=== PATIENT | female | born 1995 | race Two or more races ===

== ENCOUNTER 2024-11-02 16:33 | Outpatient (REF) | payer MEDICAID, SELFPAY ==
--- OUTSIDE RECORDS SUMMARY | 2024-11-02 17:12 | XMS_ITS | Encounter Summary ---
Author Organization [employer] Address [address] [facility] 7t [place] [address] Care Team Providers Care Photographic Intelligence Officer Name Role Phone Unavailable Primary Care Provider Unavailabl e Reason for Visit * Reason Onset Date Comments Appointment 11/02/2024 Patient needs to be put on the new patient list Encounter Details Date Type Department Care Team (Late st Contact Info) Description 11/02/2024 Telephone [facility] [address] [place] [address] [phone] Madelin Norwood MD [address], [place] [phone] Appointment (Patient needs to be put on the new patient list) Social History Tobacco Use Types Packs/Day Years Used Date Smoking Tobacco: Never Assessed Comments Unknown Sex and Gender Information Value Date Recorded Sex Assigned at Female 11/02/2024 3:42 PM EDT Legal Sex Female 3:40 PM EDT Gender Identity Female 11/02/2024 3:42 PM EDT Sexual Orientation Straight 11/02/2024 3: 47 PM EDT documented as of this encounter Miscellaneous Notes * Telephone Encounter - Stevie Reyes MA - 11/02/2024 4:29 PM EDT Patient needs to be put on the new patient list documented in this encounter Plan of Treatment Not on file documented as of this encounter Visit Diagnoses Not on filedocumented in this encounter
--- OUTSIDE RECORDS SUMMARY | 2024-11-02 17:12 | XMS_ITS | Encounter Summary ---
Author Organization [employer] Address [address] [facility] 7t [place] [address] Care Team Providers Care Newspaper Writer Name Role Phone Unavailable Primary Care Provider Unavailabl e Reason for Visit * Reason Comments swallon feet and leg Encounter Details Date Type Department Care Team (Late st Contact Info) Description 11/02/2024 4:00 PM EDT Office Visit [facility] [address] [place] [address] Bilateral edema of lower extremity (Primary Dx); Weight gain Social History Tobacco Use Types Packs/Day Years Used Date Smoking Tobacco: Never Assessed Comments Unknown Sex and Gender Information Value Date Recorded Sex Assigned at Female 11/02/2024 3:42 PM EDT Legal Sex Female 3:40 PM EDT Gender Identity Female 11/02/2024 3:42 PM EDT Sexual Orientation Straight 11/02/2024 3: 47 PM EDT documented as of this encounter Last Filed Vital Signs Vital Sign Reading Time Taken Comments Blood Pressure 131/84 11/02/2024 4:10 PM EDT Pulse 94 11/02/2024 4:10 PM EDT Temperature 37.2 ??C (98.9 ??F) 11/02/2024 4:10 PM ED T Respiratory Rate 20 11/02/2024 4:10 PM EDT Oxygen Saturation 97% 11/02/2024 4:10 PM EDT Inhaled Oxygen Concentration - - Weight 86.2 kg (190 lb) 11/02/2024 4:10 PM EDT Height - - Body Mass Index - - documented in this encounter Miscellaneous Notes * Assessment & Plan Note - Linda Iverson - 11/02/2024 4:29 PM EDTAssociated Problem(s): Weight gain Unknown etiology. -ordered labs 4/3/25 * Assessment & Plan Note - Linda Iverson - 11/02/2024 4:28 PM EDTAssociated Problem(s): Bilateral edema of lower extremity Bilateral lower extremity edema, not currently present. Exam benign. -Stemmers sign negative (able to pinch skin on the dorsum of foot) -No evidence of heart failure or untreated YAJAIRA, JVP flat, lungs clear -No evidence of cellulitis or ruptured popliteal cyst -Management includes compression, elevation, and avoidance of exacerbating medications. -Compression stockings documented in this encounter Plan of Treatment Scheduled Orders Name Type Priority Associated Diagnoses Orde r Schedule CBC auto differential Lab Routine Bilateral edema of lower extremity Weight gain Expected: 11/02/2024 (Approximate), Expires: 11/02/2025 Sed Rate by Modified Westergren Lab Routine Bilateral edema of lower extremity Weight gain Expected: 11/02/2024, Expires: 11/02/2025 TSH W/Reflex to FT4 Lab Routine Bilateral edema of lower extremity Weight gain Expected: 11/02/2024 (Approximate), Expires: 11/02/2025 Basic Metabolic Panel Lab Routine Bilateral edema of lower extremity Weight gain Expected: 11/02/2024 (Approximate), Expires: 11/02/2025 documented as of this encounter Visit Diagnoses Diagnosis Bilateral edema of lower extremity- Primary Weight gain Other symptoms concerning nutrition, metabolism, and development documented in this encounter
--- OUTSIDE RECORDS SUMMARY | 2024-11-02 17:12 | XMS_ITS | Clinical Summary ---
Author Organization [employer] Address [address] [facility] 7t [place] [address] Care Team Providers Care University Manager Name Role Phone Unavailable Primary Care Provider Unavailabl e Active Problems Problem Noted Date Diagnosed Date Bilateral edema of lower extremity 11/02/2024 Assessment & Plan (11/02/2024 4:40 PM EDT): Bilateral lower extremity edema, not currently present. Exam benign. -Stemmers sign negative (able to pinch skin on the dorsum of foot) -No evidence of heart failure or untreated YAJAIRA, JVP flat, lungs clear -No evidence of cellulitis or ruptured popliteal cyst -Management includes compression, elevation, and avoidance of exacerbating medications. -Compression stockings Weight gain 11/02/2024 Assessment & Plan (11/02/2024 4:41 PM EDT): Unknown etiology. -ordered labs 11/02/24 Encounters Date Type Department Care Team Description 11/02/2024 4:00 PM EDT Office Visit [facility] [address] [place] [phone] Bilateral edema of lower extremity (Primary Dx); Weight gain 11/02/2024 Telephone [facility] [address] [place] [address] Madelin Norwood MD Appointment (Patient needs to be put on the new patient list) 11/02/2024 Travel from Last 3 Months Social History Tobacco Use Types Packs/Day Years Used Date Smoking Tobacco: Never Assessed Comments Unknown Sex and Gender Information Value Date Recorded Sex Assigned at Female 11/02/2024 3:42 PM EDT Legal Sex Female 3:40 PM EDT Gender Identity Female 11/02/2024 3:42 PM EDT Sexual Orientation Straight 11/02/2024 3: 47 PM EDT Last Filed Vital Signs Vital Sign Reading [...] - - Body Mass Index - - Plan of Treatment Health Maintenance Due Date Last Done Comments Depression Screening 1993 HIV Screening 1993 SDOH Screening 1993 Alcohol/Substance Use Screening 2005 Tobacco Screening 2005 Family Planning (PISQ) 2008 Hepatitis C Screening 2011 DTaP/Tdap/Td Vaccines (1 - Tdap) 2012 Hepatitis B Vaccines (1 of 3 - 19+ 3-dose series) 2012 Pap Smear 2014 Cervical Cancer Screening 2023 HPV/Cotest 2023 COVID-19 Vaccine (1 - 2023-2 5 season) 2024 Influenza Vaccine (#1) 2024 Zoster Vaccines (1 of 2) 2043 RSV Patients and Pa tients Aged 60 years or older (1 - 1-dose 75+ series) 2068 HIB Vaccines Aged Out No longer eligi ble based on patient's age to complete this topic HPV Vaccines Aged Out No longer eligi ble based on patient's age to complete this topic Hepatitis A Vaccines Aged Out No long er eligible based on patient's age to complete this topic IPV Vaccines Aged Out No longer eligi ble based on patient's age to complete this topic Meningococcal Vaccine Aged Out No rodríguez moreno eligible based on patient's age to complete this topic Pneumococcal Vaccine: Pediat rics (0 to 5 Years) and At-Risk Patients (6 to 49) Years) Aged Out No longer eligible b ased on patient's age to complete this topic RSV under 20 months Aged Out No longe r eligible based on patient's age to complete this topic Rotavirus Vaccines Aged Out No longer eligible based on patient's age to complete this topic [place] [address] [address] [place] [address] LIMITED HSN FULL
--- OUTSIDE RECORDS SUMMARY | 2024-11-02 17:12 | XMS_ITS | Clinical Summary ---
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 cxr negative Gestational diabetes 2019 DX:Gestatio nal diabetes Headache, migraine DX:Headache, migraine Family History Medical History Relation Name Comments Breast cancer Neg Hx Ovarian cancer Neg Hx Uterine cancer Neg Hx Relation Name Status Comments Father Alive Mother Alive Sister 1 Alive Sister 2 Alive Social History Tobacco Use Types Packs/Day Years Used Date Smoking Tobacco: Never Smokeless Tobacco: Never Alcohol Use Standard Drinks/Week Comments No 0 (1 standard drink = 0.6 oz pur e alcohol) Comments Unknown Sex and Gender Information Value Date Recorded Sex Assigned at Not on file Legal Sex Female 3:28 AM EST Gender Identity Not on file Sexual Orientation Not on file Obstetrics History Last Filed Vital Signs Vital Sign Reading Time Taken Comments Blood Pressure 122/82 11/24/2022 9:04 AM EDT Pulse 105 11/24/2022 9:04 AM EDT Temperature - - Respiratory Rate - - Oxygen Saturation - - Inhaled Oxygen Concentration - - Weight 80.6 kg (177 lb 9.6 oz) 11/24/2022 9:04 A M EDT Height 160 cm (5' 3 ) 11/24/2022 9:04 AM EDT Body Mass Index 31.46 11/24/2022 9:04 AM EDT Plan of Treatment Health Maintenance Due Date Last Done Comments DTaP,Tdap,and Td Vaccines (1 - Tdap) 2012 Hepatitis B Vaccines (1 of 3 - 19+ 3-dose series) 2012 Depression Screening 07/05/2022 HIV Screening 07/05/2022 Hepatitis C Screening 07/05/2022 Social Influencers of Health Screening 07/05/2022 Cervical Cancer Screening: P ap Smear 02/21/2023 02/22/2020, 01/05/2020 COVID-19 Vaccine (2023-2 5 season) 2024 Influenza Vaccine (Season Ended) 2025 HIB Vaccines Aged Out No longer eligi [...] on patient's age to complete this topic MMR Vaccines Aged Out No longer eligi ble based on patient's age to complete this topic Meningococcal ACWY Vaccine Aged Out N o longer eligible based on patient's age to complete this topic Meningococcal B Vacine Aged Out No lo nger eligible based on patient's age to complete this topic Pneumococcal Vaccine: Pediatrics (0 to 5 Years) and At-Risk Patients (6 to 64 Years) Aged Out No longer eligible b ased on patient's age to complete this topic RSV Immunization Patients Under 20 months Aged Out No longer eligible b ased on patient's age to complete this topic Varicella Vaccines Aged Out No longer eligible based on patient's age to complete this topic Procedures Procedure Name Priority Date/Time Associated Diagnosis Comments PAP SMEAR Routine 02/22/2020 from Last 3 Months or Most Recently Relevant to Health Maintenance Results * Pap smear (02/22/2020) 02/22/2020 Narrative HISTORICAL TESTING LAB RESULTING AGENCY - 02/26/2020 11:25 AM EDT [id number] THINPREP PAP, IMAGED: NEGATIVE FOR SQUAMOUS INTRAEPITHELIAL LESION AND MALIGNANCY . CLUE CELLS ARE PRESENT. SULMA CHIN(ASCP) (CASE ELECTRONICALLY SIGNED 02 26 2020) ADEQUACY: SATISFACTORY ENDOCERVICAL/TRANSFORMATION ZONE COMPONENT PRESENT. SOURCE: THINPREP PAP HPV IF ASCUS, CERVICAL, IMAGED CLINICAL INFORMATION: HPV IF DIAGNOSIS OF ASCUS. HORMONES, PAP HX NEG, NO LMP RECORDED, IRREGULAR MENSES [Z12.4] us Siri Rahman MD LAB CYTOLOGY ORDERABLES Fin al Result HISTORICAL TESTING LAB RESULTING AGENCY from Last 3 Months or Most Recently Relevant to Health Maintenance Care Teams Apparel Patternmaker Relationship Specialty Start Date End Date Shiela Burns MD [address] [place] [address] PCP - General Internal Medicine 01/05/20
--- OUTSIDE RECORDS SUMMARY | 2024-11-02 17:12 | XMS_ITS | Encounter Summary ---
Author Organization [employer] Address [address] [facility] 7t [place] [address] Care Team Providers Care Brine Tank Separator Operator Name Role Phone Unavailable Primary Care Provider Unavailabl e Encounter Details Date Type Department Care Team (Latest Contact Info) Description 11/02/2024 Travel Social History Tobacco Use Types Packs/Day Years Used Date Smoking Tobacco: Never Assessed Comments Unknown Sex and Gender Information Value Date Recorded Sex Assigned at Female 11/02/2024 3:42 PM EDT Legal Sex Female 3:40 PM EDT Gender Identity Female 11/02/2024 3:42 PM EDT Sexual Orientation Straight 11/02/2024 3: 47 PM EDT documented as of this encounter Plan of Treatment Not on file documented as of this encounter Visit Diagnoses Not on filedocumented in this encounter
[2024-11-02 17:46] LABS: MANUAL DIFF FLAG NO
[2024-11-02 18:07] LABS: Anion Gap 12 (12-20); Blood Urea Nitrogen 10 mg/dL (9-16); Calcium 9.9 mg/dL (8.4-10.2); Carbon Dioxide 27 mmol/L (22-29); Chloride 105 mmol/L (96-108); Estimated Glomerular Filt Rate > 60; Glucose Random 96 mg/dL (60-115); Potassium 4.4 mmol/L (3.3-5.1); Sodium 140 mmol/L (135-145)
[2024-11-02 18:18] LABS: Basophils Percent Auto 0.5 % (0-2); Eosinophils Absolute Auto 0.2 X10*3/uL (0.0-0.4); Eosinophils Percent Auto 1.8 % (0-4); Hematocrit 44.7 % (37.0-47.0); Hemoglobin 14.9 g/dl (12.0-16.0); Imm Gran Abs Auto 0.05 X10*3/uL (0.00-0.03); Imm Gran Pct Auto 0.6 % (0.0-0.4); Lymphocytes Absolute Auto 2.9 X10*3/uL (1.2-4.9); Lymphocytes Percent Auto 32.5 % (20-40); Mean Corpuscular HGB Conc 33.3 g/dl (31.0-35.0); Mean Corpuscular Hemoglobin 30.2 pg (27.0-33.0); Mean Corpuscular Volume 90.7 fL (80.0-98.0); Mean Platelet Volume 10.1 fL (9.4-12.3); Monocytes Absolute Auto 0.5 X10*3/uL (0.1-1.2); Neutrophils Absolute Auto 5.2 x10*3/uL (2.0-8.3); Neutrophils Percent Auto 58.6 % (45-73); Platelet Count 277 X10*3/uL (160-400); Red Blood Count 4.93 X10*6/uL (4.20-5.50); Red Cell Distribution Width 12.6 % (11.0-16.0); White Blood Count 8.8 X10*3/uL (4.8-10.8)
[2024-11-02 18:37] LABS: TSH reflex Free T4 1.79 uIU/mL (0.32-4.0)
[2024-11-02 20:18] LABS: Erythrocyte Sedimentation Rate 9 MM/HR (0-20)
== END 2024-11-02 16:34 | disposition home or self-care (01) ==
LOC: HO.HHCL 16:33
PROVIDERS: Visit Provider Family Medicine
DX: R60.0 Localized edema (principal); R63.5 Abnormal weight gain
CPT/HCPCS: 36415; 80048; 84443; 85025; 85652

== ENCOUNTER 2025-03-20 16:55 | Outpatient (REF) | payer MEDICAID, SELFPAY ==
--- OUTSIDE RECORDS SUMMARY | 2025-03-20 17:53 | XMS_ITS | Clinical Summary ---
Author Organization [employer] Address [address] [facility] 7t [place] [address] Care Team Providers Care Viscose Cellar Charge Hand Name Role Phone Heather Dinero MD Primary Care Pro vider Allergies No known active allergies Medications No known medications Active Problems Problem Noted Date Diagnosed Date Migraine 02/28/2025 Health care maintenance 02/28/2025 Obesity (BMI 30-39.9) 02/28/2025 Anxiety with depression 02/28/2025 Resolved Problems Problem Noted Date Diagnosed Date Resolved Date Bilateral edema of lower extremity 11/02/2024 02/28/2025 Assessment & Plan (11/02/2024 4:40 PM EDT): Bilateral lower extremity edema, not currently present. Exam benign. -Stemmers sign negative (able to pinch skin on the dorsum of foot) -No evidence of heart failure or untreated YAJAIRA, JVP flat, lungs clear -No evidence of cellulitis or ruptured popliteal cyst -Management includes compression, elevation, and avoidance of exacerbating medications. -Compression stockings Encounters Date Type Department Care Team Description 03/20/2025 9:30 AM EDT Procedure Visit [facility] [address] [place] [phone] Margarette Dunn CNM Cervical cancer screening (Primary Dx) 03/20/2025 Travel 03/19/[address] [address] Heather Dinero MD Chart Prep 02/28/2025 9:15 AM EDT Office Visit [address] [address] Heather Dinero MD Migraine without status migrainosus, not intractable, unspecified migraine type (Primary Dx); Health care maintenance; Obesity (BMI 30-39.9); Dietary counseling; Exercise counseling; Anxiety with depression 02/28/2025 Telephone [facility] [address] [place] [phone] Heather Dinero MD Appointment 02/28/2025 Travel 02/27/2025 Telephone [facility] [address] [place] [address] Heather Dinero MD CHART PREP 02/21/2025 Patient Outreach [facility] [address] [place] [address] Heather Dinero MD Pre-visit Planning (SDOH Screening negative and Tobacco screening negative) from Last 3 Months Family History Medical History Relation Name Comments HTN Maternal Grandfather Hyperthyroidism Mother's Sister Breast cancer Neg Hx Colon cancer Neg Hx Ovarian cancer Neg Hx Relation Name Status Comments Maternal Grandfather Mother's Sister Social History Tobacco Use Types Packs/Day Years Used Date Smoking Tobacco: Never Passive Smoke Exposure: Never Smokeless Tobacco: Never Tobacco Cessation:Counseling Given: Not Answered Alcohol Use Standard Drinks/Week Comments Yes 0 (1 standard drink = 0.6 oz pur e alcohol) social Depression Answer Date Recorded Patient Health Questionnaire-9 Score 4 02/28/2025 Patient Health Questionnaire-9 Score 4 02/28/2025 Last PHQ-9: Questionnaire Data Not on file 0 02/28/2025 Housing Stability Answer Date Recorded What is your housing situation today? I have crissy cavazos 02/21/[address] you li ve. Do you have problems with any of the following? None of the above 02/21/2025 Food Insecurity Answer Date Recorded Within the past 12 months, y ou worried that your food would run out before you got money to buy more: Never True 02/21/2025 Within the past 12 months,th e food you bought just didn't last and you didn't have enough money to get more: Never True Transportation Answer Date Recorded In the past 12 months, has l ack of transportation kept you from medical appts, meetings, work or from getting things needed for daily living? No 02/21/2025 Utilities Answer Date Recorded In the past 12 months, has t he electric, gas, oil or water company threatened to shut off services in your home? No 02/21/2025 Depression Answer Date Recorded Patient Health Questionnaire-2 Score 2 02/28/2025 Internet Access Answer Date Recorded Internet Access Q1 Yes 02/21/2025 Internet Access Q2 Not on file 02/21/2025 Comments Unknown Intention Date Recorded No desire to become (finding) 0 03/20/2025 Sex and Gender Information Value Date Recorded Sex Assigned at Female 11/02/2024 3:42 PM EDT Legal Sex Female 3:40 PM EDT Gender Identity Female 11/02/2024 3:42 PM EDT Sexual Orientation Straight 11/02/2024 3: 47 PM EDT Last Filed Vital Signs Vital Sign Reading Time Taken Comments Blood Pressure 90/70 03/20/2025 9:21 AM EDT Pulse 77 03/20/2025 9:21 AM EDT Temperature 36.6 C (97.9 F) 03/20/2025 9:21 AM EDT Respiratory Rate 14 03/20/2025 9:21 AM EDT Oxygen Saturation 98% 03/20/2025 9:21 AM EDT Inhaled Oxygen Concentration - - Weight 85.7 kg (189 lb) 03/20/2025 9:21 AM EDT Height 160 cm (5' 3 ) 02/28/2025 9:36 AM EDT Body Mass Index 33.48 02/28/2025 9:36 AM EDT Plan of Treatment Upcoming Encounters Date Type Department Care Team (Late st Contact Info) Description 04/24/2025 9:00 AM EDT Office Visit [facility] [address] [place] [address] Heather Dinero MD [address] [place] [address] Health Maintenance Due Date Last Done Comments HIV Screening 1993 Lipid Panel 1993 HPV Vaccines (1 - 3-dose series) 2008 Hepatitis C Screening 2011 DTaP/Tdap/Td Vaccines (1 - Tdap) 2012 Hepatitis B Vaccines (1 of 3 - 19+ 3-dose series) 2012 Pap Smear 2014 Cervical Cancer Screening 2023 HPV/Cotest 2023 COVID-19 Vaccine ( - 2023-2 5 season) 2024 Influenza Vaccine (#1) 2025 SDOH Screening 02/21/2026 02/21/2025 Alcohol/Substance Use Screening 02/28/2026 02/28/2025 Depression Screening 02/28/2026 02/28/2025, 02/28/2025 Disability Screening 02/28/2026 02/28/2025 Family Planning (PISQ) 03/20/2026 03/20/2025 Tobacco Screening 03/20/2026 03/20/2025 Zoster Vaccines (1 of 2) 2043 RSV Patients and Patients Aged 60 years or older (1 - 1-dose 75+ series) 2068 HIB Vaccines Aged Out No longer eligi ble based on patient's age to complete this topic Hepatitis A Vaccines Aged Out No long er eligible based on patient's age to complete this topic IPV Vaccines Aged Out No longer eligi ble based on patient's age to complete this topic Meningococcal B Vaccine Aged Out No l onger eligible based on patient's age to complete this topic Meningococcal Vaccine Aged Out No rodríguez moreno eligible based on patient's age to complete this topic Pneumococcal Vaccine: Pediatrics (0 to 5 Years) and At-Risk Patients (6 to 49) Years Aged Out No longer eligible b ased on patient's age to complete this topic RSV under 20 months Aged Out No longe r eligible based on patient's age to complete this topic Rotavirus Vaccines Aged Out No longer eligible based on patient's age to complete this topic Insurance [employer] HSN FULL Care Teams Viscose Cellar Charge Hand Relationship Specialty Start Date End Date Heather Dinero MD [address] [place] [phone] PCP - General Internal Medicine 02/28/25
--- OUTSIDE RECORDS SUMMARY | 2025-03-20 17:53 | XMS_ITS | Clinical Summary ---
Author Organization [facility] ity Address [address] [place] [address] Care Team Providers Care Mate Chief Name Role Phone Shiela Burns MD Primary Care Provider [phone] Surgical History Surgery Date Site/Laterality Comments OTHER [...] of 3 - 19+ 3-dose series) 2012 HIV Screening 07/05/2022 Hepatitis C Screening 07/05/2022 Social Influencers of Health Screening 07/05/2022 Cervical Cancer Screening: P ap Smear 02/21/2023 02/22/2020, 01/05/2020 COVID-19 Vaccine (1 - 2023-2 5 season) 2024 Depression Screening 08/02/2024 Influenza Vaccine (#1) 2025 HIB Vaccines Aged Out No longer [...] 5 Years) and At-Risk Patients (6 to 49 Years) Aged Out No longer eligible b [...] RESULTING AGENCY - 02/26/2020 11:25 AM EDT [id number] THINPREP PAP, IMAGED: NEGATIVE FOR SQUAMOUS INTRAEPITHELIAL [...] Recently Relevant to Health Maintenance Care Teams Mate Chief Relationship Specialty Start Date End Date Shiela Burns MD [address] [place] [address] PCP - General Internal Medicine 01/05/20
== END 2025-03-20 16:56 | disposition home or self-care (01) ==
LOC: HO.LNP 16:55
PROVIDERS: Visit Provider Advanced Practice Midwife
DX: Z12.4 Encounter for screening for malignant neoplasm of cervix (principal); Z11.51 Encounter for screening for human papillomavirus (HPV)
CPT/HCPCS: 87626; 88175

== ENCOUNTER 2025-04-19 09:21 | Outpatient (REF) | payer MEDICAID, SELFPAY ==
--- OUTSIDE RECORDS SUMMARY | 2025-04-19 10:54 | XMS_ITS | Clinical Summary ---
Author Organization [employer] Address [address] [facility] 7[address] [place] [address] Care Team Providers Care Director Career Services Name Role Phone Heather Dinero MD Primary [...] Encounters Date Type Department Care Team Description 03/28/2025 Results Follow-Up [address] [address] Sean Montero CNM Pap Smear 03/20/2025 9:30 AM EDT Procedure Visit [address] [address] Sean Montero CNM Cervical cancer screening (Primary Dx) 03/20/2025 Orders Only [address] [address] Sean Montero CNM 03/20/2025 Travel 03/19/[address] [address] Heather Dinero MD Chart Prep 02/28/2025 9:15 AM EDT Office Visit [address] [address] Heather Dinero MD Migraine without status migrainosus, not intractable, unspecified migraine type (Primary Dx); Health care maintenance; Obesity (BMI 30-39.9); Dietary counseling; Exercise counseling; Anxiety with depression 02/28/[address] [address] Heather Dinero MD Appointment 02/28/2025 Travel 02/27/[address] [address] Heather Dinero MD CHART PREP 02/21/2025 Patient Outreach [address] [address] Heather Dinero MD Pre-visit Planning (SDOH Screening [...] Description 04/24/2025 9:00 AM EDT Office Visit [facility] [address] [place] [address] Heather Dinero MD [address] [place] [address] Health Maintenance Due Date Last Done Comments HIV Screening 1993 Lipid Panel 1993 HPV Vaccines (1 - 3-dose series) 2008 Hepatitis C Screening 2011 DTaP/Tdap/Td Vaccines (1 - Tdap) 2012 Hepatitis B Vaccines (1 of 3 - 19+ 3-dose series) 2012 COVID-19 Vaccine (1 - 2023-2 5 season) 2025 Influenza Vaccine (#1) 2025 SDOH Screening 02/21/2026 02/21/2025 Alcohol/Substance Use Screening 02/28/2026 02/28/2025 Depression Screening 02/28/2026 02/28/2025, 02/28/2025 Disability Screening 02/28/2026 02/28/2025 Family Planning (PISQ) 03/20/2026 03/20/2025 Tobacco Screening 03/20/2026 03/20/2025 Cervical Cancer Screening 03/20/2030 HPV/Cotest 03/20/2030 03/20/2025 Pap Smear 03/20/2030 03/20/2025 Zoster Vaccines (1 of 2) 2043 [...] Date/Time Associated Diagnosis Comments PAP SMEAR Routine 03/20/2025 10:21 AM EDT Cervical cancer screening HPV DNA, LOW/HIGH RISK Routine 03/20/2025 10:21 AM EDT from Last 3 Months Results * HPV DNA, Low/High Risk (03/20/2025 10:21 AM EDT) HPV High Risk Negative Negative [facility] HPV Genotype 16 Negative Negative [facility] HPV Genotype 18 Negative Negative [facility] Comment:HPV testing performe d at [facility] (CLIA#[id number]), [address] [place] [id number].Testing for HPV was performed using the Jesse OLLIE 6800system. The presence of HPV in the female genital tract isassociated with a number of diseases, including cervicalcarcinoma. The HPV DNA high risk pool tests for HPV 31, 33,35, 39, 45, 51, 52, 56, 58, 59, 66 and 68. The testing forHPV 16 and 18 genotypes has also been performed. A positiveresult indicates detection of nucleic acid sequences fromone or more subtypes, whereas a negative result indicatessuch sequences were not detected. 03/20/2025 10:2 1 AM EDT 03/21/2025 8:45 AM EDT us Sean NOGUERA LAB BLOOD ORDERABLES Rafaela workman Result [facility] [address] [place] [phone] * Pap Smear (03/20/2025 10:21 AM EDT) Swab Cervix uteri structure / Unknown 03/20/2025 10:21 AM EDT 03/21/2025 8:45 AM EDT Jose [facility] - 03/26/2025 10:29 AM EDT ----- ------- Name: [place] Mack Age/Sex: 29/F : 1995 Unit#: [id number] Attend Dr: SEAN MONTERO CNM Re03/20/25 Status: DEP REF Location: [facility] Disch: ----- ------- SPEC : [id number] RECD: 03/21/25 STATUS: BRE MCCORD NUM: [id number] ADRIANA: 03/20/25-[address] [facility] [address]: SEAN MONTERO CNM ENTERED: 03/21/25 SP TYPE: Pap Smr OT DR: ORDERED: Pap Smear Interpretation Satisfactory for evaluation. Negative for intraepithelial lesion or malignancy. Moderate inflammation. Coccobacilli consistent with shift in vaginal mercedes. HPV High Risk: Negative HPV Genotyping 16: Negative HPV Genotyping 18: Negative Clinical Information LMP: Unknown date Previous PAP test: Unknown date/findings Material Received ThinPrep-Cervical PAP Disclaimer As of May 24, 2024, the technical services to include automated prescreening performed by the ThinPrep Imaging System, PAP screening and HPV testing will be performed at [facility] (CLIA #[id number]), [address] [place] [address]. Testing for HPV was performed using the [employer] 6800 system. The presence of HPV in the female genital tract is associated with a number of diseases, including cervical carcinoma. The HPV DNA high risk pool tests for HPV 31, 33, 35, 39, 45, 51, 52, 56, 58, 59, 66 and 68. The testing for HPV 16 and 18 genotypes has also been performed. A positive result indicates detection of nucleic acid sequences from one or more subtypes, whereas a negative result indicates such sequences were not detected. All professional services are performed by [facility] ([address] [place] [address], [place] [address]; ; CLIA #[id number]). The PAP Test is a screening procedure with the inherent possibility of both false negative and false positive results. Results should be interpreted in the context of historic and current clinical findings. Reliability of the PAP Test is enhanced by performing the test on a regular repetitive basis. CONTINUED ON NEXT PAGE ----- ------- Name: Mack[place]ake ghotra Age/Sex: 29/ : 1995 Unit#: [id number] Attend Dr: SEAN MONTERO CNM Re03/20/25 Status: [facility] Location: [facility] Disch: ----- ------- SPEC : [id number] RECD: 03/21/25 STATUS: BRE MCCORD NUM: [id number] ADRIANA: 03/20/25-[address] [facility] [address]: SEAN MONTERO CNM ENTERED: 03/21/25 SP TYPE: Pap Pearl TOLBERT DR: ORDERED: Pap Smear ----- ------- Signed (signature on file) Stanislaw SULMA Hernandez ([facility]) 03/26/25 1029 ----- ------- END OF REPORT Sean Montero [facility] CYTOLOGY ORDERABLES F inal Result [facility] [address] [place] [phone] from Last 3 Months Insurance [facility] Care Teams Director Career Services Relationship Specialty Start Date End Date Heather Dinero MD [address] [place] [phone] PCP - General Internal Medicine 02/28/25
--- OUTSIDE RECORDS SUMMARY | 2025-04-19 10:54 | XMS_ITS | Encounter Summary ---
Author Organization [employer] Address [address] [facility] 7[address] [place] [address] Care Team Providers Care Gastroenterology Nurse Name Role Phone Heather Dinero MD Primary Care Pro vider Encounter Details Date Type Department Care Team ([facility] st Contact Info) Description 03/28/2025 Results Follow-Up [facility] [address] [place], [place] [phone] Margarette Dunn, POORNIMA [address] [place] [address] Pap Smear Social History Tobacco Use Types Packs/Day Years Used Date Smoking Tobacco: Never Passive Smoke Exposure: Never Smokeless Tobacco: Never Alcohol Use Standard Drinks/Week Comments Yes 0 [...] Q2 Not on file 02/21/2025 Comments Unknown Sex and Gender Information Value Date Recorded Sex Assigned at Female 11/02/2024 3:42 PM EDT Legal Sex Female 3:40 PM EDT Gender Identity Female 11/02/2024 3:42 PM EDT Sexual Orientation Straight 11/02/2024 3: 47 PM EDT documented as of this encounter Plan of Treatment Upcoming Encounters Date Type Department Care Team (Late st Contact Info) Description 04/24/2025 9:00 AM EDT Office Visit [facility] [address] [place] [phone] Heather Dinero MD [address] [place] [phone] documented as of this encounter Visit Diagnoses Not on filedocumented in this encounter Additional Health Concerns Assessment Noted Time PHQ-9 Depression Total Score: 4 02/29/20 25 9:39 AM EDT documented as of this encounter Care Teams Gastroenterology Nurse Relationship Specialty Start Date End Date Heather Dinero MD [address] [place] [phone] PCP - General Internal Medicine 02/28/25 documented as of this encounter
--- OUTSIDE RECORDS SUMMARY | 2025-04-19 10:55 | XMS_ITS | Clinical Summary ---
Author Organization [facility] ity Address [address] [place] [address] Care Team Providers Care Python Engineer Name Role Phone Shiela Burns MD Primary Care Provider [phone] Surgical History Surgery Date Site/Laterality Comments OTHER [...] Screening: P ap Smear 02/21/2023 02/22/2020, 01/05/2020 Depression Screening 08/02/2024 COVID-19 Vaccine (1 - 2023-2 5 season) 2025 Influenza Vaccine (#1) 2025 RSV Immunization Adult Patients (1 - 1-dose 75+ series) 2068 HIB [...] RESULTING AGENCY - 02/26/2020 11:25 AM EDT [id number] THINPREP PAP, IMAGED: NEGATIVE FOR SQUAMOUS INTRAEPITHELIAL [...] Recently Relevant to Health Maintenance Care Teams Python Engineer Relationship Specialty Start Date End Date Shiela Burns MD [address] [place] [phone] PCP - General Internal Medicine 01/05/20
[2025-04-19 12:10] LABS: Alanine Aminotransferase 17 U/L (0-31); Albumin Level 4.4 g/dL (3.5-5.0); Alkaline Phosphatase 60 U/L (39-117); Anion Gap 9 (12-20); Aspartate Amino Transferase 24 U/L (5-31); Blood Urea Nitrogen 10 mg/dL (9-16); Calcium 9.5 mg/dL (8.4-10.2); Carbon Dioxide 30 mmol/L (22-29); Chloride 103 mmol/L (96-108); Cholesterol 183 mg/dL (<200); Estimated Glomerular Filt Rate > 60; HDL Cholesterol 34 mg/dL (>40); Hemoglobin A1C 143.3420 umol/L; Potassium 4.1 mmol/L (3.3-5.1); Sodium 138 mmol/L (135-145); Total Hemoglobin (HGBA1C) 3750.4226 umol/L; Total Protein 7.6 g/dL (6.5-8.0); Triglycerides 138 mg/dL (<150)
[2025-04-19 12:25] LABS: HBS Num1 1.57 mIU/mL (0-7.99); HBc Num1 0.08 S/CO (0.00-0.79); HBsAGNum1 0.50 S/CO (0.00-0.99); HIV Num 1 0.05 S/CO (0.00-0.99); Hepatitis B Surface Antigen Negative (Negative); ~HepC Num1 0.30 S/CO (0.00-0.79); ~Hepatitis B Surface Antibody NONREACTIVE (Nonreactive); ~Hepatitis C Antibody Nonreactive (Nonreactive)
[2025-04-19 12:26] LABS: Syphilis Screen Nonreactive (Nonreactive)
[2025-04-19 13:41] LABS: CT PCR Urine NOT DETECTED (Not Detect.); NG PCR Urine NOT DETECTED (Not Detect.)
== END 2025-04-19 09:22 | disposition home or self-care (01) ==
LOC: HO.HHCL 09:21
PROVIDERS: PCP Student in an Organized Health Care Education/Training Program; Visit Provider Student in an Organized Health Care Education/Training Program
DX: Z00.00 Encounter for general adult medical examination without abnormal findings (principal)
CPT/HCPCS: 80053; 80061; 82306; 83036; 86704; 86706; 86780; 86803; 87340; 87389; 87491; 87591